=== PATIENT | male | born 1995 | race Caucasian/White ===

== ENCOUNTER 2019-05-15 03:36 | Emergency (ER) | payer OTHER ==
[2019-05-15] MEDS ORDERED: Tetan/Diph/Pertus SYR(Tdap)* 0.5 ML SYR(BOOSTRIX) use SYR contains LATEX IM ONE (06:00)
--- NOTE | 2019-05-15 06:04 | ED ---
Laceration/Wound HPI - HPI Summary HPI Summary: 23-year-old left-hand dominant male with no significant past medical history presents to the emergency department today with a chief complaint of a right distal thumb laceration which happened at 11 PM yesterday evening while cutting wood with a box truck washer. Patient's tetanus immunization is not up-to-date. Patient does not have a bleeding disorder and is not taking anticoagulants. Patient has full range of motion and is neurovascularly intact. There is no involvement of the nailbed. Patient is otherwise well and denies fever, cough, recent travel, chest pain, shortness breath, abdominal pain, pain with urination , rash, nausea, vomiting, diarrhea. - History of Current Complaint Stated Complaint: FINGER LAC PER PT Time Seen by Provider: 05/15/19 05:54 Hx Obtained From: Patient Mechanism of Injury: Sharp/Blunt Trauma Onset/Duration: Sudden Onset Aggravating: Movement Alleviating: Compression Timing: Constant Onset Severity: Mild Current Severity: None Pain Intensity: 0 Pain Scale Used: 0-10 Numeric Associated Signs & Symptoms: Pain Related Hx: Dominant Hand (Left) - Allergy/Home Medications Allergies/Adverse Reactions: Allergies Allergy/AdvReac Type Severity Reaction Status Date / Time No Known Allergies Allergy Verified 05/15/19 03:44 Home Medications: Home Medications NK [No Home Medications Reported] 05/15/19 [History Confirmed 05/15/19] PMH/Surg Hx/FS Hx/Imm Hx Infectious Disease History: No Infectious Disease History: Denies: Traveled Outside the [place] in Last 30 Days - [place] Review of Systems Constitutional: Negative Eyes: Negative ENT: Negative Cardiovascular: Negative Respiratory: Negative Gastrointestinal: Negative Genitourinary: Negative Musculoskeletal: Negative Skin: Negative Neurological/Mental Status: Negative Psychological: Normal All Other Systems Reviewed And Are Negative: Yes Physical Exam - Summary Physical Exam Summary: Patient is in no acute distress. There is a avulsion laceration to the right thumb distal lateral aspect with no involvement of the nailbed. No bone visible. Patient for range of motion and is neurovascularly intact. Mild bleeding is noted. Triage Information Reviewed: Yes Vital Signs On Initial Exam: Initial Vitals Temp Pulse Resp BP Pulse Ox 97.7 F 84 20 161/114 100 05/15/19 03:42 05/15/19 03:42 05/15/19 03:42 05/15/19 03:42 05/15/19 03:42 Vital Signs Reviewed: Yes Appearance: Positive: Well-Appearing, No Pain Distress, Well-Nourished Skin: Positive: Warm, Skin Color Reflects Adequate Perfusion Eyes: Positive: EOMI, VÍCTOR ENT: Positive: Hearing grossly normal Respiratory/Lung Sounds: Positive: Clear to Auscultation, Breath Sounds Present Cardiovascular: Positive: RRR, S1, S2 Abdomen Description: Positive: Nontender, Soft Musculoskeletal: Positive: Strength/ROM Intact Neurological: Positive: Sensory/Motor Intact, Alert, Oriented to Person Place, Time, Normal Gait, Facial Symmetry, Speech Normal Psychiatric: Positive: Normal, Affect/Mood Appropriate AVPU Assessment: Alert Procedures - Sedation Patient Received Moderate/Deep Sedation with Procedure: No - Laceration/Wound Repair 1 Location: upper extremity Description: Linear Length, Depth and Shape: 1cm Irrigated w/ Saline (ccs): 200 Laceration/Wound Explored: clean Closure: Skin Adhesive Diagnostics - Vital Signs Vital Signs Temp Pulse Resp BP Pulse Ox 05/15/19 03:42 97.7 F 84 20 161/114 100 - Laboratory Lab Statement: Any lab studies that have been ordered have been reviewed, and results considered in the medical decision making process. Laceration Repair Course/Dx - Course Course Of Treatment: Patient was evaluated in the emergency department today for right thumb laceration. There is a 1 cm avulsion laceration noted to the right distal thumb to the lateral aspect. Patient's tetanus is updated. Tourniquet was placed and Dermabond skin glue as well as a pressure dressing was used for hemostasis. Patient discharged with outpatient follow-up after hemostasis achieved. - Differential Dx Differental Diagnoses: Abrasion, Avulsion, Laceration - Clinical Impression Provider Diagnoses: Laceration of right thumb Discharge ED - Sign-Out/Discharge Documenting (check all that apply): Patient Departure - Discharge Plan Condition: Stable Disposition: HOME Patient Education Materials: Laceration (ED), Skin Adhesive Care (ED) Referrals: [facility] [Outside] - If Needed No Primary Care Phys,NOPCP [Primary Care Provider] - Additional Instructions: Please keep your dressing dry and intact for 24 hours. After this you may remove this and do daily changes as needed. Please follow-[facility] with [facility] as needed. Please return to this emergency Department immediately if you develop any new or worsening symptoms. - Billing Disposition and Condition Condition: STABLE Disposition: Home
[2019-05-15 06:26] VITALS: BP 148/103
== END 2019-05-15 06:24 | disposition home or self-care (01) ==
LOC: ED 03:36
DX: S61.011A Laceration without foreign body of right thumb without damage to nail, initial encounter (principal); W26.0XXA Contact with knife, initial encounter; Y92.9 Unspecified place or not applicable
CPT/HCPCS: 90471; 90715; 99282